=== PATIENT | female | born 1985 | race Caucasian/White ===

== ENCOUNTER → 2018-11-24 | Outpatient (CLI) | payer OTHER ==
--- NOTE | 2018-11-24 09:21 | US ---
EXAMINATION TYPE: US abdomen complete DATE OF EXAM: 11/24/2018 COMPARISON: NONE CLINICAL HISTORY: R74.8 Elevated liver enzymes. elevated labs, h/o pancreatitis, no abd symptoms toda y EXAM MEASUREMENTS: Liver Length: 15.1 cm Gallbladder Wall: 0.2 cm CBD: 1.0 cm Spleen: 12.6 cm Right Kidney: 10.6 x 5.3 x 4.0 cm Left Kidney: 10.3 x 3.4 x 5.2 cm Pancreas: wnl Liver: wnl Gallbladder: wnl Evidence for sonographic Golden's sign: no CBD: dilated with no obvious sign of obstruction Spleen: wnl Right Kidney: wnl Left Kidney: wnl Upper IVC: wnl Abd Aorta: wnl IMPRESSION: 1. Prominent common bile duct at 1.1 cm. Normal less than 0.5 cm and patient this age. No obstructing etiology is identified. Consider ERCP.
== END | disposition home or self-care (01) ==
LOC: RADUSWWP 07:13
PROVIDERS: ATTEND Family Medicine
DX: R74.8 Abnormal levels of other serum enzymes (principal)
CPT/HCPCS: 76700

== ENCOUNTER 2019-03-04 15:16 | Emergency (ER) | payer OTHER ==
[2019-03-04 15:39] VITALS: BP 139/86; PULSE 93; RESP 16; TEMP 98
[2019-03-04] MEDS ORDERED: LIDOCAINE 1% INJ 10MG/ML (20 ML MDV) SQ ONE (15:43)
[2019-03-04] MEDS ORDERED: GELATIN SPONGE,ABSORB (LARGE) 1 EACH SPONGE TOPICAL STA (15:44)
--- NOTE | 2019-03-04 16:33 | ED ---
Wound/Laceration HPI - General Chief Complaint: Wound/Laceration Stated Complaint: L finger laceration Time Seen by Provider: 03/04/19 15:40 Source: patient, RN notes reviewed, old records reviewed Mode of arrival: ambulatory Limitations: no limitations - History of Present Illness Initial Comments: Patient is a 33 year old female presents to ED with complaints of left index finger laceration after cutting it on a knife while cutting kareem at work. Patient reportedly works at [employer] was was cutting kareem and the knife slipped. She is up to date on vaccines. She has full range of motion of the finger. She reports this happened early this morning and was unable to get the bleeding to stop. She denies any other complaints. - Related Data Home Medications Medication Instructions Recorded Confirmed Dextroamphetamine Sulfate 15 mg PO QAM 11/06/15 11/08/15 [Dexedrine] Previous Rx's Medication Instructions Recorded Cephalexin [Keflex] 500 mg PO Q8HR #15 cap 11/08/15 Allergies Allergy/AdvReac Type Severity Reaction Status Date / Time No Known Allergies Allergy Verified 03/04/19 15:37 Review of Systems ROS Statement: Those systems with pertinent positive or pertinent negative responses have been documented in the HPI. ROS Other: All systems not noted in ROS Statement are negative. Past Medical History Past Medical History: No Reported History Additional Past Medical History / Comment(s): ADD, narcotic addiction. History of Any Multi-Drug Resistant Organisms: None Reported Past Surgical History: Section Past Psychological History: ADD/ADHD Smoking Status: Current every day smoker Past Alcohol Use History: None Reported Past Drug Use History: None Reported - Past Family History Mother Family Medical History: No Reported History (Her mother is alive she is 55-year-old and has history of alcoholism.) Father Family Medical History: No Reported History (Father is 65-year-old has no major medical problems.) General Exam - General Exam Comments Initial Comments: This is a 33 year old female, no distress. Limitations: no limitations General appearance: alert, in no apparent distress Head exam: Present: atraumatic, normocephalic, normal inspection Eye exam: Present: normal appearance, PERRL, EOMI. Absent: scleral icterus, conjunctival injection, periorbital swelling ENT exam: Present: normal exam, mucous membranes moist Neck exam: Present: normal inspection. Absent: tenderness, meningismus, lymphadenopathy Respiratory exam: Present: normal lung sounds bilaterally. Absent: respiratory distress, wheezes, rales, rhonchi, stridor Cardiovascular Exam: Present: regular rate, normal rhythm, normal heart sounds. Absent: systolic murmur, diastolic murmur, rubs, gallop, clicks GI/Abdominal exam: Present: soft, normal bowel sounds. Absent: distended, tenderness, guarding, rebound, rigid Extremities exam: Present: normal inspection, full ROM, normal capillary refill. Absent: tenderness, pedal edema, joint swelling, calf tenderness Left Forearm Wrist exam: Present: normal inspection, full ROM Hand Wrist exam: Present: laceration (1.5 cm laceration over dorsum tip of left index finger. No nail involvement. Full ROM of DIP, normal sensation distally. ). Absent: normal inspection Neuro motor exam: Present: wrist extension intact, thumb opposition intact, thumb IP flexion intact, thumb adduction intact Vascular: Present: normal capillary refill Back exam: Present: normal inspection Neurological exam: Present: alert, oriented X3, CN II-XII intact Psychiatric exam: Present: normal affect, normal mood Skin exam: Present: warm, dry, intact, normal color. Absent: rash Course Vital Signs 03/04/19 15:37 Temperature 98 F Pulse Rate 93 Respiratory 16 Rate Blood Pressure 139/86 O2 Sat by Pulse 99 Oximetry Procedures - Laceration Laceration #1 Site: hand (left index finger ) Size (cm): 2 Description: linear Depth: simple, single layer Anesthetic Used: lidocaine 1% Anesthesia Technique: nerve block Amount (mls): 2 Pre-repair: wound explored, irrigated extensively Type of Sutures: nylon Size of Sutures: 6-0 Number of Sutures: 3 Patient Tolerated Procedure: well, no complications Medical Decision Making - Medical Decision Making Patient is a 33 year old female with left index finger laceration from a knife. Patient at this time has no other symptoms. Full ROM and normal sensation of finger noted. Wound was cleaned and closed with 3 sutures. Bleeding controlled. Patient placed in a sterile dressing. Discussed suture care. All questions answered and return parameters dsicusesd. Disposition Clinical Impression: Finger laceration Disposition: HOME SELF-CARE Condition: Good Instructions (If sedation given, give patient instructions): Finger Laceration (ED) Additional Instructions: Please return to the emergency room in 7-10 days to have sutures removed. Please leave wound covered for the first 24-48 hours and then leave open to air after that time. Please use clean soap and water to clean the suture area to prevent scabbing over the top of your sutures. Please watch for any signs of infection which may include but not limited to increased pain, swelling, redness, fever or chills. Please return to the emergency room if any signs of infection do occur. Please return to the emergency room for any other concerns or complications. Is patient prescribed a controlled substance at d/c from ED?: No Referrals: Won Barillas MD [Primary Care Provider] - 1-2 days Time of Disposition: 16:31
== END 2019-03-04 16:38 | disposition home or self-care (01) ==
LOC: EC 15:16
DX: S61.211A Laceration without foreign body of left index finger without damage to nail, initial encounter (principal); F90.9 Attention-deficit hyperactivity disorder, unspecified type; F17.200 Nicotine dependence, unspecified, uncomplicated; Z79.899 Other long term (current) drug therapy; W26.0XXA Contact with knife, initial encounter; Y92.69 Other specified industrial and construction area as the place of occurrence of the external cause; Y99.0 Civilian activity done for income or pay
CPT/HCPCS: 99283; 12001; J2001

== ENCOUNTER → 2019-07-21 | Outpatient (CLI) | payer OTHER ==
--- NOTE | 2019-07-21 15:31 | US ---
EXAMINATION TYPE: US pelvic complete DATE OF EXAM: 07/21/2019 COMPARISON: NONE CLINICAL HISTORY: R10.2 PELVIC PAIN. Pelvic pain x2 weeks TECHNIQUE: Transabdominal sonographic images of the pelvis were acquired. Date of LMP: 07/02/2019 EXAM MEASUREMENTS: Uterus: 9.2 x 4.6 x 5.1 cm Endometrial Stripe: 0.5 cm Right Ovary: 3.8 x 2.0 x 2.0 cm Left Ovary: 4.0 x 2.2 x 2.1 cm 1. Uterus: Anteverted 2. Endometrium: wnl 3. Right Ovary: wnl 4. Left Ovary: wnl 5. Bilateral Adnexa: wnl 6. Posterior cul-de-sac: wnl IMPRESSION: Unremarkable pelvic ultrasound.
== END ==
LOC: RADUSWWP 14:48
PROVIDERS: ATTEND Family Medicine
DX: R10.2 Pelvic and perineal pain (principal)
CPT/HCPCS: 76856

== ENCOUNTER 2019-09-05 16:28 | Emergency (ER) | payer OTHER ==
--- NOTE | 2019-09-05 18:09 | US ---
EXAMINATION TYPE: Transabdominal DATE OF EXAM: 09/05/2019 5:52 PM COMPARISON: NONE CLINICAL HISTORY: abdominal pain after fall.Patient fell pain. EXAM PERFORMED: Transvaginal (TV) and Transabdominal (TA) EXAM MEASUREMENTS: GESTATIONAL AGE / DATING Physician Established: Not yet established Dates by LMP: (8 weeks/4 days) EDC: 04/12/2020 Dates by First Scan: No previous this is first scan Dates by Current Scan for: No IUP seen at this time MATERNAL ANATOMY Uterus: 8.8 x 6.2 x 6.8 cm Right Ovary: Obscured by bowel gas. Left Ovary: 2.9 x 2.5 x 2.3 cm Post CDS / Adnexa: wnl Presence of free fluid: no Presence of corpus luteal cyst: no Presence of subchorionic bleed: no GESTATION / SURVEY IUP: No IUP seen at this time Beta HcG (if available): Not available at this time IMPRESSION: Intrauterine gestational sac with yolk sac. The sac measures 10 mm. Yolk sac is 4 mm. Follow-up exam is recommended in 2 weeks to confirm a living fetus.
[2019-09-05 18:57] LABS: Basophils # (A) 0.1 k/uL (0-0.2); Basophils % (A) 1 %; Eosinophils # (A) 0.1 k/uL (0-0.7); Eosinophils % (A) 2 %; HCT 42.3 % (34.0-46.0); HGB 13.9 gm/dL (11.4-16.0); Lymphocytes # (A) 2.3 k/uL (1.0-4.8); Lymphocytes % (A) 44 %; MCH 30.4 pg (25.0-35.0); MCHC 32.9 g/dL (31.0-37.0); MCV 92.6 fL (80.0-100.0); Monocytes # (A) 0.2 k/uL (0-1.0); Monocytes % (A) 5 %; Neutrophils # (A) 2.5 k/uL (1.3-7.7); Neutrophils % (A) 47 %; Platelet Count 237 k/uL (150-450); RBC 4.57 m/uL (3.80-5.40); RDW 12.1 % (11.5-15.5); WBC 5.4 k/uL (3.8-10.6)
[2019-09-05 19:01] LABS: Appearance,Urine Cloudy (Clear); Bacteria,Urine Rare /hpf; Bilirubin,Urine Negative (Negative); Blood,Urine Moderate (Negative); Color,Urine Yellow; Glucose,Urine (UA) Negative (Negative); Ketones,Urine Negative (Negative); Leukocyte Esterase,Urine Large (Negative); Mucus,Urine Rare /hpf; Nitrite,Urine Negative (Negative); PH, Urine 5.5 (5.0-8.0); Protein,Urine Negative (Negative); RBC,Urine 3 /hpf (0-5); Specific Gravity,Urine 1.018 (1.001-1.035); Squamous Epithelial Cell,Urine 16 /hpf (0-4); Urobilinogen,Urine <2.0 mg/dL (<2.0); WBC,Urine 16 /hpf (0-5)
[2019-09-05 19:05] LABS: ALT 49 U/L (4-34); AST 41 U/L (14-36); African American GFR (CKD) >90 (>60 ml/min/1.73 sqM); Albumin 4.2 g/dL (3.5-5.0); Alkaline Phosphatase 42 U/L (38-126); Anion Gap 6 mmol/L; Blood Urea Nitrogen 14 mg/dL (7-17); Calcium 9.9 mg/dL (8.4-10.2); Carbon Dioxide 24 mmol/L (22-30); Chloride 107 mmol/L (98-107); Glucose 74 mg/dL (74-99); Non-African American GFR(CKD) >90 (>60 ml/min/1.73 sqM); Potassium 4.8 mmol/L (3.5-5.1); Sodium 137 mmol/L (137-145); Total Bilirubin 0.3 mg/dL (0.2-1.3); Total Protein 7.1 g/dL (6.3-8.2)
[2019-09-05 19:22] LABS: HCG,Quantitative Serum 7759.3 mIU/mL
[2019-09-05 19:24] VITALS: BP 114/72; PULSE 70; RESP 16; TEMP 98
--- NOTE | 2019-09-05 19:47 | ED ---
Abdominal Pain HPI - General Chief Complaint: Abdominal Pain Stated Complaint: Fall, Abd pain-9wks PG Time Seen by Provider: 09/05/19 16:52 Source: patient Mode of arrival: ambulatory Limitations: no limitations - History of Present Illness Initial Comments: 34yo female presenting today for chief complaint of fall. Patient states she fell down one step slid on her right hip. Patient states she now has some very mild pelvic cramping. Patient states she has somewhere around 9 weeks with last menstrual period July 07. Patient denies direct abdominal trauma, vaginal bleeding, flank pain, dysuria, urgency, frequency vaginal discharge. Issac tobin states she thinks she just bruised her tissue, of the hip she "does not think she broke anything". She states she is able to ambulate without difficulty. Patient denies injury to chest, pain with inspiration, or head, neck injury. remaining ROS (-). Patient states fall was due to trip. - Related Data Home Medications Medication Instructions Recorded Confirmed Dextroamphetamine Sulfate 15 mg PO QAM 11/06/15 11/08/15 [Dexedrine] Previous Rx's Medication Instructions Recorded Cephalexin [Keflex] 500 mg PO Q8HR #15 cap 11/08/15 Cephalexin [Keflex] 500 mg PO Q12HR 5 Days #10 cap 09/05/19 Allergies Allergy/AdvReac Type Severity Reaction Status Date / Time No Known Allergies Allergy Verified 09/05/19 16:36 Review of Systems ROS Statement: Those systems with pertinent positive or pertinent negative responses have been documented in the HPI. ROS Other: All systems not noted in ROS Statement are negative. Past Medical History Past Medical History: No Reported History Additional Past Medical History / Comment(s): ADD, narcotic addiction. History of Any Multi-Drug Resistant Organisms: None Reported Past Surgical History: Section Past Psychological History: ADD/ADHD Smoking Status: Current every day smoker Past Alcohol Use History: None Reported Past Drug Use History: None Reported - Past Family History Mother Family Medical History: No Reported History (Her mother is alive she is 55-year-old and has history of alcoholism.) Father Family Medical History: No Reported History (Father is 65-year-old has no major medical problems.) General Exam - General Exam Comments Initial Comments: General: The patient is awake and alert, in no distress, and does not appear acutely ill. Eye: +3 mm pupils are equal, round and reactive to light, extra-ocular movements are intact. No nystagmus. There is normal conjunctiva bilaterally. No signs of icterus. Ears, nose, mouth and throat: There are moist mucous membranes and no oral lesions. Neck: The neck is supple, there is no tenderness or JVD. Cardiovascular: There is a regular rate and rhythm. No murmur, rub or gallop is appreciated. Respiratory: Lungs are clear to auscultation, respirations are non-labored, breath sounds are equal. No wheezes, stridor, rales, or rhonchi. Gastrointestinal: Soft, non-distended, non-tender abdomen without masses or organomegaly noted. There is no rebound or guarding present. No CVA tenderness. Bowel sounds are unremarkable. Musculoskeletal: Normal ROM, no tenderness. Strength 5/5. Sensation intact. Radial pulses equal bilaterally 2+. Neurological: A&O x 3. CN II-XII intact grossly, There are no obvious motor or sensory deficits. Coordination appears grossly intact. Speech is normal. Skin: Skin is warm and dry and no rashes or lesions are noted. No areas of ecchymosis or hard signs of trauma Psychiatric: Cooperative, appropriate mood & affect, normal judgment. Limitations: no limitations Course Vital Signs 09/05/19 09/05/19 16:32 19:23 Temperature 98.2 F 98.0 F Pulse Rate 97 70 Respiratory 18 16 Rate Blood Pressure 122/68 114/72 O2 Sat by Pulse 98 98 Oximetry Medical Decision Making - Medical Decision Making 34 or female presenting today for chief complaint of right hip pain fall patient presented for evaluation of BV. Ultrasound revealed a gestational sac with yolk. There is no heart rate at this time. Pt denies vaginal bleeding or severe pain. States most pain is in right hip/buttock. No bruising. Patient can weight bear and refuses imaging studies of hip due to fear of radiation of baby. P atient N/V intact. patient HCG consistent with ear . At this time I recommend close OBGYN f/u. Patient has scheduled appointment with Dr. Goodman discussed case reviewing imaging and labs with attending Dr. Perla who is agreeable to discharge and care plan. Patient agreeable stating she is ready for d/c. Will treat asymptomatic bacteria in urine. - Lab Data Result diagrams: 09/05/19 18:45 09/05/19 18:45 Lab Results 09/05/19 09/05/19 09/05/19 Range/Units 18:45 18:45 18:45 WBC 5.4 (3.8-10.6) k/uL RBC 4.57 (3.80-5.40) m/uL Hgb 13.9 (11.4-16.0) gm/dL Hct 42.3 (34.0-46.0) % MCV 92.6 (80.0-100.0) fL MCH 30.4 (25.0-35.0) pg MCHC 32.9 (31.0-37.0) g/dL RDW 12.1 (11.5-15.5) % Plt Count 237 (150-450) k/uL Neutrophils % 47 % Lymphocytes % 44 % Monocytes % 5 % Eosinophils % 2 % Basophils % 1 % Neutrophils # 2.5 (1.3-7.7) k/uL Lymphocytes # 2.3 (1.0-4.8) k/uL Monocytes # 0.2 (0-1.0) k/uL Eosinophils # 0.1 (0-0.7) k/uL Basophils # 0.1 (0-0.2) k/uL Sodium 137 (137-145) mmol/L Potassium 4.8 (3.5-5.1) mmol/L Chloride 107 (98-107) mmol/L Carbon Dioxide 24 (22-30) mmol/L Anion Gap 6 mmol/L BUN 14 (7-17) mg/dL Creatinine 0.72 (0.52-1.04) mg/dL Est GFR (CKD-EPI)AfAm >90 (>60 ml/min/1.73 sqM) Est GFR (CKD-EPI)NonAf >90 (>60 ml/min/1.73 sqM) Glucose 74 (74-99) mg/dL Calcium 9.9 (8.4-10.2) mg/dL Total Bilirubin 0.3 (0.2-1.3) mg/dL AST 41 H (14-36) U/L ALT 49 H (4-34) U/L Alkaline Phosphatase 42 (38-126) U/L Total Protein 7.1 (6.3-8.2) g/dL Albumin 4.2 (3.5-5.0) g/dL HCG, Quant 7759.3 mIU/mL Urine Color Yellow Urine Appearance Cloudy H (Clear) Urine pH 5.5 (5.0-8.0) Ur Specific [place] 1.018 (1.001-1.035) Urine Protein Negative (Negative) Urine Glucose (UA) Negative (Negative) Urine Ketones Negative (Negative) Urine Blood Moderate H (Negative) Urine Nitrite Negative (Negative) Urine Bilirubin Negative (Negative) Urine Urobilinogen <2.0 (<2.0) mg/dL Ur Leukocyte Esterase Large H (Negative) Urine RBC 3 (0-5) /hpf Urine WBC 16 H (0-5) /hpf Ur Squamous Epith Cells 16 H (0-4) /hpf Urine Bacteria Rare H (None) /hpf Urine Mucus Rare H (None) /hpf Disposition Clinical Impression: Fall, Lower abdominal pain, Right hip pain Disposition: HOME SELF-CARE Condition: Good Instructions (If sedation given, give patient instructions): Abdominal Pain in (ED) Additional Instructions: Please use medication as discussed. Please follow-up with family doctor in the next 2 days.. Please return to emergency room if the symptoms increase or worsen or for any other concerns. Is patient prescribed a controlled substance at d/c from ED?: No Referrals: Won Barillas MD [Primary Care Provider] - 1-2 days Uriel Goodman DO [Doctor of Osteopathic Medicine] - 1-2 days Time of Disposition: 19:47
== END 2019-09-05 19:54 | disposition home or self-care (01) ==
LOC: EC 16:28
DX: O99.89 Other specified diseases and conditions complicating pregnancy, childbirth and the puerperium (principal); R10.2 Pelvic and perineal pain; M25.551 Pain in right hip; R82.71 Bacteriuria; O99.341 Other mental disorders complicating pregnancy, first trimester; F90.9 Attention-deficit hyperactivity disorder, unspecified type; O99.331 Smoking (tobacco) complicating pregnancy, first trimester; Z79.899 Other long term (current) drug therapy; Z98.890 Other specified postprocedural states; Z3A.01 Less than 8 weeks gestation of pregnancy; W10.9XXA Fall (on) (from) unspecified stairs and steps, initial encounter
CPT/HCPCS: 36415; 76801; 76817; 80053; 81001; 84702; 85025; 99284

== ENCOUNTER → 2019-09-07 | Outpatient (CLI) | payer OTHER | END | disposition home or self-care (01) | LOC: LABMAIN 21:34 | PROVIDERS: ATTEND Obstetrics & Gynecology | DX: O20.0 Threatened abortion (principal) | CPT/HCPCS: 36415; 84702 ==

== ENCOUNTER → 2019-09-09 | Outpatient (CLI) | payer OTHER | END | disposition home or self-care (01) | LOC: LABMAIN 18:41 | PROVIDERS: ATTEND Obstetrics & Gynecology | DX: O03.9 Complete or unspecified spontaneous abortion without complication (principal) | CPT/HCPCS: 36415; 84702 ==

== ENCOUNTER → 2019-09-16 | Outpatient (CLI) | payer OTHER ==
--- NOTE | 2019-09-16 13:41 | US ---
EXAMINATION TYPE: Transabdominal DATE OF EXAM: 09/16/2019 1:11 PM COMPARISON: NONE CLINICAL HISTORY: Z36 CONFIRM DATES. Bleeding since last week miscarraige. EXAM PERFORMED: Transabdominal (TA) EXAM MEASUREMENTS: GESTATIONAL AGE / DATING Physician Established: Not yet established Dates by First Scan: Not dated by first scan. Dates by Current Scan for: No IUP seen. MATERNAL ANATOMY Uterus: 8.9 x 4.8 x 5.5 Right Ovary: 1.9 x 1.0 x 1.4 cm Left Ovary: 2.0 x 1.4 x 1.4 cm Post CDS / Adnexa: wnl Presence of free fluid: no Presence of corpus luteal cyst: no GESTATION / SURVEY IUP: No IUP seen at this time Beta HcG (if available): None available IMPRESSION: No intrauterine is seen. Correlate with beta-hCG trend. Endometrium is not visu alized. If there is concern for retained products of conception or endometritis, transvaginal pelvic ultrasound could be performed for better delineation of the endometrial thickness and vascularity.
== END | disposition home or self-care (01) ==
LOC: RADUSWWP 12:20
PROVIDERS: ATTEND Obstetrics & Gynecology
DX: O03.9 Complete or unspecified spontaneous abortion without complication (principal)
CPT/HCPCS: 36415; 76801; 84702

== ENCOUNTER → 2019-09-30 | Outpatient (CLI) | payer OTHER | END | disposition home or self-care (01) | LOC: LABWHC1 07:48 | PROVIDERS: ATTEND Obstetrics & Gynecology | DX: O03.9 Complete or unspecified spontaneous abortion without complication (principal) | CPT/HCPCS: 36415; 84702 ==

== ENCOUNTER → 2019-11-09 | Outpatient (CLI) | payer OTHER | END | disposition home or self-care (01) | LOC: LABWHC1 11:43 | PROVIDERS: ATTEND Obstetrics & Gynecology | DX: N91.2 Amenorrhea, unspecified (principal) | CPT/HCPCS: 36415; 84702 ==

== ENCOUNTER → 2019-11-11 | Outpatient (CLI) | payer OTHER | END | disposition home or self-care (01) | LOC: LABWHC1 10:53 | PROVIDERS: ATTEND Obstetrics & Gynecology | DX: N91.2 Amenorrhea, unspecified (principal) | CPT/HCPCS: 36415; 84702 ==

== ENCOUNTER → 2019-11-16 | Outpatient (CLI) | payer OTHER ==
--- NOTE | 2019-11-16 09:30 | US ---
EXAMINATION TYPE: Ultrasound OB <= 14 weeks transvaginal DATE OF EXAM: 11/16/2019 8:54 AM COMPARISON: 09/05/2019 CLINICAL HISTORY: 34-year-old female Z36 Confirm Dates. Recent miscarriage . No issues this EXAM PERFORMED: Transvaginal (TV) and Transabdominal (TA) FINDINGS: EXAM MEASUREMENTS: GESTATIONAL AGE / DATING Physician Established: Not yet established Dates by LMP: (6 weeks/3 days) EDC: 07/08/2020 Dates by First Scan: No previous this is first scan ( Dates by Current Scan for: (5 weeks/5 days +/- 3 days) EDC: 07/13/2020 MATERNAL ANATOMY Uterus: 10.3 x 6.0 x 6.8 cm Right Ovary: 3.8 x 2.1 x 2.0 cm Left Ovary: 2.1 x 1.4 x 1.7 cm Post CDS / Adnexa: wnl Presence of free fluid: No Presence of corpus luteal cyst: Right ovary measuring 1.4 cm Presence of subchorionic bleed: No GESTATION / SURVEY CRL: 1.3 cm (5 weeks/4 days) MSD: 0.3 cm (5 weeks/6 days) Yolk Sac (normal less than 6mm): 2.4 mm Heart Rate: 110 bpm Rhythm: Normal for early gestation IUP: Viable IUP Date of LMP: 10/02/2019 Beta HcG (if available): 15,000 Viable IUP with an KEVIN of 07/13/2020 IMPRESSION: 1. Single live intrauterine with estimated gestational age of 6 weeks 3 days by LMP. Curren t ultrasound biometry is smaller and slightly discordant (5 weeks 5 days). Correlate for accuracy of recall of LMP. Follow-up as indicated. 2. Otherwise, complete survey recommended at 18-20 weeks.
== END | disposition home or self-care (01) ==
LOC: RADUSWWP 08:28
PROVIDERS: ATTEND Obstetrics & Gynecology
DX: Z3A.01 Less than 8 weeks gestation of pregnancy (principal); Z87.59 Personal history of other complications of pregnancy, childbirth and the puerperium
CPT/HCPCS: 76801; 76817

== ENCOUNTER → 2020-01-12 | Outpatient (CLI) | payer OTHER ==
[2020-01-12 09:35] LABS: HCT 39.1 % (34.0-46.0); MCH 29.6 pg (25.0-35.0); MCHC 33.3 g/dL (31.0-37.0); MCV 88.8 fL (80.0-100.0); Mean Platelet Volume 6.9; Platelet Count 255 k/uL (150-450); RDW 11.8 % (11.5-15.5); WBC 4.4 k/uL (3.8-10.6)
[2020-01-12 17:27] LABS: African American GFR (CKD) 129.2 (60.0-200.0); Non-African American GFR(CKD) 111.5 (60.0-200.0)
[2020-01-12 18:34] LABS: Hepatitis B Surface Antigen Non-Reactive (Non-Reactive)
[2020-01-13 04:53] LABS: Toxoplasma Antibody (IgG) <3.0 IU/mL (<7.2); Toxoplasma Antibody (IgM) <3.0 AU/mL (<8.0)
== END | disposition home or self-care (01) ==
LOC: LABWHC1 08:27
PROVIDERS: ATTEND Obstetrics & Gynecology
DX: Z34.81 Encounter for supervision of other normal pregnancy, first trimester (principal)
CPT/HCPCS: 36415; 82565; 82947; 85027; 86762; 86777; 86778; 86780; 86850; 86900; 86901; 87340

== ENCOUNTER → 2020-05-31 | Outpatient (CLI) | payer OTHER ==
[2020-05-31 15:31] LABS: T4, Free (Free Thyroxine) 1.2 ng/dL (0.80-1.80)
== END | disposition home or self-care (01) ==
LOC: LABWHC1 07:20
PROVIDERS: ATTEND Obstetrics & Gynecology
DX: Z13.29 Encounter for screening for other suspected endocrine disorder (principal)
CPT/HCPCS: 36415; 84439; 84443; 84479

== ENCOUNTER 2020-06-05 06:00 | Inpatient (IN) | payer OTHER ==
[2020-07-04] MEDS ORDERED: OXYTOCIN 10 UNIT/ML 1 ML VIAL IM PRN (06:57)
[2020-07-04] MEDS ORDERED: LIDOCAINE 0.5% (PF) 5 MG/ML (50 ML SDV) SQ PRN (06:57)
[2020-07-04] MEDS ORDERED: METHYLERGONOVINE 0.2 MG/ML 1 ML AMP IM PRN (06:57)
[2020-07-04] MEDS ORDERED: TERBUTALINE 1 MG/ML VIAL SQ PRN (06:57)
[2020-07-04] MEDS ORDERED: CARBOPROST TROMETHAMINE 250 MCG/ML 1 ML AMP IM PRN (06:57)
[2020-07-04] MEDS ORDERED: OXYTOCIN 30 UNITS/500 ML NS 30 UNIT in SALINE 1 500ML.BAG IV SCH (07:00)
[2020-07-04 07:11] LABS: Basophils # (A) 0.1 k/uL (0-0.2); Basophils % (A) 1 %; Eosinophils # (A) 0.1 k/uL (0-0.7); Eosinophils % (A) 1 %; HCT 38.9 % (34.0-46.0); HGB 13.4 gm/dL (11.4-16.0); Lymphocytes # (A) 2.4 k/uL (1.0-4.8); Lymphocytes % (A) 39 %; MCH 30.8 pg (25.0-35.0); MCHC 34.5 g/dL (31.0-37.0); MCV 89.2 fL (80.0-100.0); Mean Platelet Volume 7.5; Monocytes # (A) 0.2 k/uL (0-1.0); Monocytes % (A) 3 %; Neutrophils # (A) 3.3 k/uL (1.3-7.7); Neutrophils % (A) 55 %; Platelet Count 260 k/uL (150-450); RBC 4.36 m/uL (3.80-5.40); RDW 12.7 % (11.5-15.5); WBC 6.1 k/uL (3.8-10.6)
[2020-07-04] MEDS: LACTATED RINGERS 1,000 ML IV SCH ×3 (07:44→20:17)
--- NOTE | 2020-07-04 08:13 | P.HPOB ---
History of Present Illness H&P Date: 07/04/20 Chief Complaint: Intrauterine at term: Advanced maternal age November is a 35-year-old with a history of one delivery. Her Precis course has been, complicated by methadone use that was discovered until very late in the . She has had nonstress tests due to advanced maternal age and has been followed carefully from that standpoint. She did have a fall and scraped her hand and knee had approximately 30 weeks. I did arrange for her to speak with the assembler dc field ring about her methadone use. She is also a trial of labor following section with expectation for vaginal after section. She is aware of risks of doing this including potential rupture of the uterus were limited tear of the uterine incision with potential r isk of emergent surgery and large blood volume loss as well as potential neurologic injury or . She and/or the baby. This was reviewed with her in great detail and previous visits. All questions are answered for her at this time. She is stable at this time. A category 1 tracing was noted and artificial rupture membranes was performed with her dilated to 2 cm 70% effaced -2 station. Past Medical History Past Medical History: No Reported History Additional Past Medical History / Comment(s): ADD, narcotic addiction. History of Any Multi-Drug Resistant Organisms: None Reported Past Surgical History: Section Additional Past Surgical History / Comment(s): wisdom teeth, breast augmentation, hand surgery Past Anesthesia/Blood Transfusion Reactions: No Reported Reaction Past Psychological History: ADD/ADHD Smoking Status: Former smoker Past Alcohol Use History: None Reported Additional Drug Use History / Comment(s): methdaone - Past Family History Mother Family Medical History: No Reported History Father Family Medical History: No Reported History Medications and Allergies Home Medications Medication Instructions Recorded Confirmed Type Methadone [Dolophine] 80 mg PO DAILY 07/04/20 07/04/20 History Allergies Allergy/AdvReac Type Severity Reaction Status Date / Time lactose Allergy Intermediate Nausea & Verified 07/04/20 06:54 Vomiting & Diarrhea Exam Osteopathic Statement: *. No significant issues noted on an osteopathic structural exam other than those noted in the History and Physical/Consult. Vital Signs Temp Pulse Resp BP 07/04/20 07:26 97.5 F L 81 16 127/81 Intake and Output 07/03/20 07/04/20 07/04/20 22:59 06:59 14:59 Other: Weight 92.986 kg 92.986 kg - OBG Physical Exam Breast: both: normal (no masses) Abdomen: bowel sounds normal, no diffuse tenderness, no bruit present, no guarding noted, no hepatomegaly, no splenomegaly, no mass Vulva: both: normal Vagina: normal moisture, no discharge Cervix: no lesion, no discharge Uterus: normal size, normal contour Adnexa: both: normal Anus/Rectum: normal perianal skin, no rectal mass, no hemorrhoids, heme negative Results Result Diagrams: 07/04/20 06:50
[2020-07-04] MEDS ORDERED: AMPICILLIN 2,000 MG in SODIUM CHLORIDE 0.9% 50 ML IVPB STA (21:40)
[2020-07-04] MEDS ORDERED: BENZOCAINE/MENTHOL SPRAY 1 GM/SPRAY AEROSOL TOPICAL PRN (22:28)
[2020-07-04] MEDS ORDERED: ZOLPIDEM 5 MG TAB PO PRN (22:28)
[2020-07-04] MEDS ORDERED: HYDROCORTISONE 2.5% RECTAL CREAM 30 GM TUBE RECTAL PRN (22:28)
[2020-07-04] MEDS ORDERED: diphenhydrAMINE 50 MG/ML 1 ML VIAL IVP PRN ×2 (22:28)
[2020-07-04] MEDS ORDERED: LANOLIN CREAM 5 GM TUBE TOPICAL PRN (22:28)
[2020-07-04] MEDS ORDERED: diphenhydrAMINE 25 MG CAP PO PRN (22:28)
[2020-07-04] MEDS ORDERED: diphenhydrAMINE 50 MG CAP PO PRN (22:28)
[2020-07-04] MEDS ORDERED: SIMETHICONE 80 MG CHEWABLE PO PRN (22:28)
[2020-07-04] MEDS ORDERED: OXYTOCIN 20 UNITS/1000 ML NS 1,000 ML IV SCH (22:30)
--- NOTE | 2020-07-04 22:30 | P.PROBDLV ---
Vaginal Delivery Note - . Vaginal Delivery Note: Progressed to complete and pushed with spontaneous vaginal delivery of a viable male over an intact perineum. Following delivery of the head from left occiput anterior position anterior posterior shoulders were easily delivered with gentle downward upper traction followed by the remainder the baby. Mouth nares were then bulb suctioned and baby was placed mother's abdomen where the umbilical cord was allowed to pulsate for 45 seconds prior to clamping and c utting. Nursery personnel was present and assumed care. Placenta was then delivered intact Pitocin was added to the IV. scores are 9 and 9 at one and 5 minutes respectively and the weight was 7 lbs. 9 oz. Both the mother and baby are stable following delivery.
[2020-07-04] MEDS: IBUPROFEN 600 MG TAB PO PRN (23:08)
[2020-07-05] MEDS: ACETAMINOPHEN TAB 325 MG TAB PO PRN ×3 (02:59→18:57)
[2020-07-05] MEDS: IBUPROFEN 600 MG TAB PO PRN ×3 (05:02→21:03)
[2020-07-05] MEDS: SENNOSIDES-DOCUSATE SODIUM 1 EACH TAB PO SCH ×2 (07:38→21:01)
[2020-07-05 08:35] VITALS: RESP 16
--- NOTE | 2020-07-05 08:38 | P.PN ---
Progress Note - Text Progress Note Date: 07/05/20November seen and evaluated this morning. She is doing very well. She is tolerating her diet and she is ambulating and voiding without difficulty. Her vital signs are stable and afebrile. This point she is ready taken her methadone. I ordered methadone 80 mg daily and did discuss this with pharmacy. All questions are answered for her at this time. She if it she is taking pill form she can take her own and we can send identified from a see and identify it if not or if it's liquid informed and will have to give her the hospital methadone for the next 24 hours. All the questions are answered for her at this time and she is stable at this time. On physical exam her heart is regular, joce ngs clear and her abdomen is soft. Lochia is reported light. Continue current care.
[2020-07-05] MEDS: METHADONE 10 MG TAB PO SCH (11:43)
--- NOTE | 2020-07-05 16:05 | P.PN ---
Progress Note - Text Progress Note Date: 07/05/20November is seen and evaluated again this afternoon. She is doing very well and the plan will be to discharge her to home tomorrow. Prescriptions for Motrin and Reglan are 42 from 60. She is requesting the Reglan for increase in milk production as she is had to use medications in the past. She is aware of symptoms i.e. extrapyramidal symptoms as well as fatigue and irritability that may come with use of Reglan. Her plans to not use it and left is absent gas syringe her milk production is decreased. However, with this being a holiday weekend she would like to make sure that she has it available just in case she needs it. Prescription for breast pump was also provided. Discharge instru ctions were thoroughly reviewed and all questions were answered for both she and her .
[2020-07-06] MEDS: ACETAMINOPHEN TAB 325 MG TAB PO PRN ×2 (02:12→11:01)
[2020-07-06] MEDS: IBUPROFEN 600 MG TAB PO PRN (06:12)
[2020-07-06] MEDS: METHADONE 10 MG TAB PO SCH (06:12)
--- NOTE | 2020-07-06 07:13 | P.PNOBGVD ---
Subjective - Subjective Patient reports: Reports appetite normal, Reports voiding normally, Reports pain well controlled, Reports ambulating normally : doing well Objective - Latest Vital Signs Latest vital signs: Vital Signs Temp Pulse Resp BP Pulse Ox 07/05/20 23:11 97.6 F 81 16 135/81 97 07/05/20 16:00 96.3 F L 71 16 131/75 98 07/05/20 08:00 98.4 F 97 16 123/77 96 Intake and Output 07/05/20 07/06/20 07/06/20 22:59 06:59 14:59 Intake Total 300 Balance 300 Intake: Oral 300 Other: # Voids 2 2 - Exam Lungs: bilateral: normal Chest: Normal S1, Normal S2 Extremities: Present: normal Abdomen: Present: normal appearance, soft Uterus: Present: normal, firm Assessment and Plan Assessment: Post day #2. Patient is resting without new complaints. Vital signs are stable and she is afebrile. Uterus is firm nontender she's having normal lochia. Plan today is to continue routine care discharge home later. (1) Vaginal delivery Current Visit: Yes Status: Acute Code(s): O80 - ENCOUNTER FOR FULL-TERM UNCOMPLICATED DELIVERY SNOMED Code(s): 503208938
--- NOTE | 2020-07-06 07:16 | P.DS ---
Providers Date of admission: 07/04/20 06:27 Expected date of discharge: 07/06/20 Attending physician: Uriel Goodamn Primary care physician: Stated None - Discharge Diagnosis(es) (1) Vaginal delivery Current Visit: Yes Status: Acute Hospital Course: Please see dictated H&P for intimate details of this patient's admission. Brief summary this is a 35-year-old 9 para 6 female estimated gestational age 39-2/7 weeks who presented to labor and delivery for induction of labor per Dr. Goodman. Patient goes on to have a vaginal delivery () of a viable male . Please see dictated delivery note. Post day #2 patient's felt to be stable for discharge home follow up with Dr. Goodman as instructed. Procedures: Induction of labor and normal vaginal delivery () Patient Condition at Discharge: Good Plan - Discharge Summary New Discharge Prescriptions: New Ibuprofen [Motrin] 600 mg PO Q6HR PRN #30 tab PRN Reason: Pain Metoclopramide HCl [Reglan] 10 mg PO BID #28 tablet No Action Methadone [Dolophine] 80 mg PO DAILY Discharge Medication List Methadone [Dolophine] 80 mg PO DAILY 07/04/20 [History] Ibuprofen [Motrin] 600 mg PO Q6HR PRN #30 tab 07/05/20 [Rx] Metoclopramide HCl [Reglan] 10 mg PO BID #28 tablet 07/05/20 [Rx] Follow up Appointment(s)/Referral(s): Uriel Goodman DO [Doctor of Osteopathic Medicine] - 6 Weeks Activity/Diet/Wound Care/Special Instructions: No heavy lifting, limit stairs and driving and pelvic rest. call for any high tempratures, heavy bleeding, or severe pain Discharge Disposition: HOME SELF-CARE
[2020-07-06] MEDS: SENNOSIDES-DOCUSATE SODIUM 1 EACH TAB PO SCH (08:53)
[2020-07-06 11:20] VITALS: BP 149/79; PULSE 78; TEMP 98
== END 2020-07-06 13:12 | disposition home or self-care (01) | DRG 806 ==
LOC: 4FBP 07-04 06:27
PROVIDERS: ADMIT Obstetrics & Gynecology; ATTEND Obstetrics & Gynecology
PROC: 10E0XZZ Delivery of Products of Conception, External Approach (ICD-10-PCS; principal; 2020-07-04)
DX: O34.219 Maternal care for unspecified type scar from previous cesarean delivery (principal); O99.324 Drug use complicating childbirth; Z37.0 Single live birth; F90.9 Attention-deficit hyperactivity disorder, unspecified type; F11.90 Opioid use, unspecified, uncomplicated; O99.344 Other mental disorders complicating childbirth; Z87.891 Personal history of nicotine dependence; Z91.09 Other allergy status, other than to drugs and biological substances; Z3A.39 39 weeks gestation of pregnancy
CPT/HCPCS: 85025; 86850; 86900; 86901

== ENCOUNTER → 2021-02-14 | Outpatient (CLI) | payer OTHER ==
[2021-02-14 12:11] LABS: HCT 41.2 % (37.2-46.3); HGB 13.8 g/dL (12.0-15.0); MCH 29.2 pg (27.0-32.0); MCHC 33.5 g/dL (32.0-37.0); MCV 87.1 fL (80.0-97.0); Mean Platelet Volume 9.6 fL (9.5-12.2); Platelet Count 296 X 10*3/uL (140-440); RBC 4.73 X 10*6/uL (4.10-5.20); RDW 12.8 % (11.5-14.5)
[2021-02-14 16:42] LABS: African American GFR (CKD) 109.2 (60.0-200.0); Non-African American GFR(CKD) 94.2 (60.0-200.0)
[2021-02-14 17:16] LABS: T4, Free (Free Thyroxine) 0.8 ng/dL (0.80-1.80)
[2021-02-14 18:01] LABS: HIV 2 AB Non-Reactive (Non-Reactive); HIV AB P24 Non-Reactive (Non-Reactive); HIV P24 AG Non-Reactive (Non-Reactive)
[2021-02-14 19:47] LABS: Hepatitis B Surface Antigen Non-Reactive (Non-Reactive)
[2021-02-14 21:20] LABS: T3, Uptake 22 % (23-37)
[2021-02-15 04:28] LABS: Toxoplasma Antibody (IgG) <3.0 IU/mL (<7.2); Toxoplasma Antibody (IgM) <3.0 AU/mL (<8.0)
== END | disposition home or self-care (01) ==
LOC: LABWHC1 07:33
PROVIDERS: ATTEND Obstetrics & Gynecology
DX: Z34.81 Encounter for supervision of other normal pregnancy, first trimester (principal); Z3A.00 Weeks of gestation of pregnancy not specified
CPT/HCPCS: 36415; 82565; 82947; 84439; 84443; 84479; 85027; 86762; 86777; 86778; 86780; 86850; 86900; 86901; 87340; 87390

== ENCOUNTER → 2021-02-22 | Outpatient (CLI) | payer OTHER ==
--- NOTE | 2021-02-22 14:05 | US ---
EXAMINATION TYPE: Transabdominal DATE OF EXAM: 02/22/2021 1:21 PM COMPARISON: NONE CLINICAL HISTORY: O26.851 bleeding and spotting. spotting that started this morning EXAM PERFORMED: Transabdominal (TA) EXAM MEASUREMENTS: GESTATIONAL AGE / DATING Physician Established: (11 weeks/1 days) EDC: 09/12/21 Dates by LMP: unknown Dates by First Scan: No previous this is first scan Dates by Current Scan for: (10 weeks/5 days) EDC: 09/15/21 MATERNAL ANATOMY Uterus: 13.6 x 6.4 x 9.9cm Right Ovary: 2.3 x 1.0 x 2.3cm Left Ovary: 3.5 x 2.5 x 3.5cm Post CDS / Adnexa: appears wnl Presence of free fluid: no Presence of corpus luteal cyst: cystic area left ovary = 2.6 x 2.0 x 2.7cm GESTATION / SURVEY CRL: 3.8cm (10 weeks/5 days) Yolk Sac (normal less than 6mm): 0.4cm Heart Rate: 163 bpm Rhythm: Normal IUP: Viable IUP Date of LMP: unknown Beta HcG (if available): Not available at this time IMPRESSION: Single live intrauterine with gestational age measuring 10 weeks and 5 days by sonographic criteria.
== END | disposition home or self-care (01) ==
LOC: RADUSWWP 12:57
PROVIDERS: ATTEND Obstetrics & Gynecology
DX: O26.851 Spotting complicating pregnancy, first trimester (principal); Z3A.10 10 weeks gestation of pregnancy
CPT/HCPCS: 76801

== ENCOUNTER 2021-04-06 12:22 | Outpatient (CLI) | payer OTHER ==
[2021-04-06 13:43] LABS: Basophils % (A) 0 %; Eosinophils # (A) 0.1 k/uL (0-0.7); Eosinophils % (A) 1 %; HCT 38.4 % (34.0-46.0); HGB 13.1 gm/dL (11.4-16.0); Lymphocytes % (A) 36 %; MCH 30.5 pg (25.0-35.0); MCHC 34.1 g/dL (31.0-37.0); MCV 89.4 fL (80.0-100.0); Mean Platelet Volume 7.3; Monocytes # (A) 0.2 k/uL (0-1.0); Monocytes % (A) 3 %; Neutrophils # (A) 3.2 k/uL (1.3-7.7); Neutrophils % (A) 58 %; Platelet Count 245 k/uL (150-450); RDW 13.9 % (11.5-15.5); WBC 5.5 k/uL (3.8-10.6)
[2021-04-06 13:59] LABS: ALT 10 U/L (4-34); AST 22 U/L (14-36); Amylase 69 U/L (30-110); GGT 12 U/L (12-43); Lipase 100 U/L (23-300)
--- NOTE | 2021-04-06 16:35 | US ---
EXAMINATION TYPE: US abdomen limited DATE OF EXAM: 04/06/2021 COMPARISON: 11/24/2018 CLINICAL HISTORY: 36-year-old female rule out cholelithiases. Epigastric pain, patient is 17 weeks pr egnant TECHNIQUE: Multiple sonographic images of the right upper quadrant are obtained. FINDINGS: EXAM MEASUREMENTS: Liver Length: 16.5 cm Gallbladder Wall: 0.3 cm CBD: 7.3 mm Right Kidney: 11.4 x 4.3 x 4.9 cm Pancreas: Tail obscured by overlying bowel gas. Visualized portions show no gross abnormality. Liver: Overall homogeneous appearance. Normal size. Gallbladder: Borderline fullness but no ruben hydropic change. No wall thickening, pericholecystic fl uid, or shadowing calculi. Evidence for sononoaphic Mdilated sign: no CBD: no evidence of hydronephrosis den of hydronephro IMPRESSION: 1. The bile duct is dilated at 7.3 mm. However, on 11/24/2018, the bile duct was also dilated measurin g 1.0 cm. This suggests that this may be chronic for the patient. Recommend correlating for normal al kaline phosphatase and bilirubin levels. A choledochocyst is a differential consideration. If laborat ory values are elevated, a recurrent biliary obstruction could be considered. 2. No gallstones or ancillary findings of acute cholecystitis.
[2021-04-06 17:11] LABS: Bilirubin, Delta 0.1 mg/dL (0.0-0.2); Bilirubin,Unconjugated 0.3 mg/dL (0.0-1.1); Total Bilirubin 0.4 mg/dL (0.2-1.3)
== END 2021-04-06 17:05 | disposition home or self-care (01) ==
LOC: FBPOP 12:22
PROVIDERS: ATTEND Obstetrics & Gynecology
DX: O26.612 Liver and biliary tract disorders in pregnancy, second trimester (principal); O99.332 Smoking (tobacco) complicating pregnancy, second trimester; F17.200 Nicotine dependence, unspecified, uncomplicated; Z3A.17 17 weeks gestation of pregnancy; Z91.011 Allergy to milk products
CPT/HCPCS: 76705; 82150; 82248; 82977; 83690; 84450; 84460; 85025

== ENCOUNTER → 2021-05-01 | Outpatient (CLI) | payer OTHER ==
[2021-05-01 20:09] LABS: T4, Free (Free Thyroxine) 1.1 ng/dL (0.80-1.80)
== END | disposition home or self-care (01) ==
LOC: LABWHC1 08:22
PROVIDERS: ATTEND Internal Medicine
DX: E89.0 Postprocedural hypothyroidism (principal)
CPT/HCPCS: 36415; 84439; 84443; 86376

== ENCOUNTER 2021-05-02 21:07 | Emergency (ER) | payer OTHER ==
[2021-05-02 21:25] VITALS: RESP 18; TEMP 98.6
[2021-05-02] MEDS ORDERED: AMPICILLIN-SULBACTAM 3 GM in SODIUM CHLORIDE 0.9% 100 ML IVPB STA (21:50)
--- NOTE | 2021-05-02 21:59 | ED ---
Animal Bite HPI - General Chief Complaint: Animal Bite Stated Complaint: cat bite Time Seen by Provider: 05/02/21 21:28 Source: patient Mode of arrival: ambulatory Limitations: no limitations - History of Present Illness MD Complaint: animal bite Onset/Timin -: days(s) Left: Hand Animal: cat Description: household pet Mechanism: bite Context: playing with animal Associated Symptoms: erythema Treatments Prior to Arrival: other - Related Data Patient Tetanus UTD: Yes Home Medications Medication Instructions Recorded Confirmed Methadone [Dolophine] 80 mg PO DAILY 07/04/20 05/02/21 Pnv No.95/Ferrous Fum/Folic AC 1 tab PO DAILY 04/06/21 05/02/21 [ Multivitamin Tablet] Amoxicillin/Potassium Clav 1 tab PO BID 05/02/21 05/02/21 [Augmentin 875-125 Tablet] Aspirin 81 mg PO DAILY 05/02/21 05/02/21 Levothyroxine Sodium [Synthroid] 50 mcg PO DAILY 05/02/21 05/02/21 Allergies Allergy/AdvReac Type Severity Reaction Status Date / Time lactose Allergy Intermediate Nausea & Verified 05/02/21 23:05 Vomiting & Diarrhea Review of Systems ROS Statement: Those systems with pertinent positive or pertinent negative responses have been documented in the HPI. ROS Other: All systems not noted in ROS Statement are negative. Constitutional: Denies: fever Respiratory: Denies: cough, dyspnea Cardiovascular: Denies: chest pain, palpitations Gastrointestinal: Denies: abdominal pain, vomiting Skin: Reports: as per HPI, lesions. Denies: rash Neurological: Denies: weakness, numbness, paresthesias Past Medical History Past Medical History: No Reported History Additional Past Medical History / Comment(s): ADD, narcotic addiction. History of Any Multi-Drug Resistant Organisms: None Reported Past Surgical History: Section Additional Past Surgical History / Comment(s): wisdom teeth, breast augmentation, hand surgery Past Anesthesia/Blood Transfusion Reactions: No Reported Reaction Past Psychological History: ADD/ADHD Smoking Status: Former smoker Past Alcohol Use History: None Reported Past Drug Use History: None Reported - Past Family History Mother Family Medical History: No Reported History Father Family Medical History: No Reported History General Exam Limitations: no limitations General appearance: alert, in no apparent distress Cardiovascular Exam: Present: other (Left radial and ulnar pulses are normal in strength. Normal capillary refill.) Left Shoulder Exam: Present: normal inspection, full ROM, other (No axillary nodes or lymphatic tracking). Absent: tenderness, swelling Upper Arm exam: Present: normal inspection, full ROM. Absent: tenderness, swelling Elbow exam: Present: normal inspection, full ROM. Absent: tenderness, swelling Forearm Wrist exam: Present: normal inspection, full ROM. Absent: tenderness, swelling Hand Wrist exam: Present: normal inspection, full ROM. Absent: tenderness, swelling Neuro motor exam: Present: wrist extension intact, thumb opposition intact, thumb IP flexion intact, thumb adduction intact, fingers 2-5 abduction intact Neurosensory exam: Present: radial nerve intact, ulnar nerve intact, median nerve intact Vascular: Present: normal capillary refill. Absent: vascular compromise, pulse deficit radial art, pulse deficit ulnar art, pulse deficit brachial art Neurological exam: Present: alert. Absent: motor sensory deficit (No sensory deficit throughout the left upper extremity) Skin exam: Present: warm, dry, intact, erythema, other (There is approximately 10 cm area of erythema, warmth, induration to dorsum of left hand, centered over bite. There is no purulent drainage. No apparent foreign body.). Absent: rash Course Vital Signs 05/02/21 21:20 Temperature 98.6 F Pulse Rate 83 Respiratory 18 Rate Blood Pressure 129/69 O2 Sat by Pulse 99 Oximetry Medical Decision Making - Lab Data Result diagrams: 05/02/21 22:09 05/02/21 22:09 Lab Results 05/02/21 05/02/21 Range/Units 22:09 22:09 WBC 7.1 (3.8-10.6) k/uL RBC 4.21 (3.80-5.40) m/uL Hgb 13.0 (11.4-16.0) gm/dL Hct 37.8 (34.0-46.0) % MCV 89.7 (80.0-100.0) fL MCH 30.8 (25.0-35.0) pg MCHC 34.3 (31.0-37.0) g/dL RDW 13.4 (11.5-15.5) % Plt Count 261 (150-450) k/uL MPV 7.2 Neutrophils % 56 % Lymphocytes % 37 % Monocytes % 4 % Eosinophils % 1 % Basophils % 1 % Neutrophils # 3.9 (1.3-7.7) k/uL Lymphocytes # 2.6 (1.0-4.8) k/uL Monocytes # 0.3 (0-1.0) k/uL Eosinophils # 0.1 (0-0.7) k/uL Basophils # 0.0 (0-0.2) k/uL Sodium 132 L (137-145) mmol/L Potassium (3.5-5.1) mmol/L Chloride 105 (98-107) mmol/L Carbon Dioxide 21 L (22-30) mmol/L Anion Gap 6 mmol/L BUN 13 (7-17) mg/dL Creatinine 1.13 H (0.52-1.04) mg/dL Est GFR (CKD-EPI)AfAm 71 (>60 ml/min/1.73 sqM) Est GFR (CKD-EPI)NonAf 62 (>60 ml/min/1.73 sqM) Glucose 92 (74-99) mg/dL Calcium 9.6 (8.4-10.2) mg/dL C-Reactive Protein 2.1 H (<1.0) mg/dL Disposition Clinical Impression: Cat bite Disposition: HOME SELF-CARE Instructions (If sedation given, give patient instructions): Animal Bite (ED) Is patient prescribed a controlled substance at d/c from ED?: No Referrals: Won Barillas MD [Primary Care Provider] - 1-2 days
--- NOTE | 2021-05-02 22:06 | XR ---
EXAMINATION TYPE: XR hand limited LT DATE OF EXAM: 05/02/2021 COMPARISON: NONE HISTORY: Pain and swelling TECHNIQUE: 2 views FINDINGS: There is soft tissue swelling on the dorsum of the hand. Metacarpals are intact. I see no f racture nor dislocation. IMPRESSION: Tissue swelling. No fracture. No evidence of arthritic disease.
[2021-05-02 22:48] LABS: C Reactive Protein 2.1 mg/dL (<1.0); Calcium 9.6 mg/dL (8.4-10.2)
[2021-05-02 22:56] LABS: Basophils % (A) 1 %; Eosinophils # (A) 0.1 k/uL (0-0.7); Eosinophils % (A) 1 %; HCT 37.8 % (34.0-46.0); Lymphocytes # (A) 2.6 k/uL (1.0-4.8); Lymphocytes % (A) 37 %; MCH 30.8 pg (25.0-35.0); MCHC 34.3 g/dL (31.0-37.0); MCV 89.7 fL (80.0-100.0); Mean Platelet Volume 7.2; Monocytes # (A) 0.3 k/uL (0-1.0); Monocytes % (A) 4 %; Neutrophils # (A) 3.9 k/uL (1.3-7.7); Neutrophils % (A) 56 %; Platelet Count 261 k/uL (150-450); RBC 4.21 m/uL (3.80-5.40); RDW 13.4 % (11.5-15.5); WBC 7.1 k/uL (3.8-10.6)
[2021-05-03 01:15] VITALS: BP 113/73; PULSE 81
== END 2021-05-03 01:15 | disposition home or self-care (01) ==
LOC: EC 21:07
DX: S61.452A Open bite of left hand, initial encounter (principal); Z87.891 Personal history of nicotine dependence; Z79.890 Hormone replacement therapy; Z79.899 Other long term (current) drug therapy; W55.01XA Bitten by cat, initial encounter
CPT/HCPCS: 36415; 80048; 85025; 86140; 73120; 96365; 96366; 99283; J0295

== ENCOUNTER → 2021-06-15 | Outpatient (CLI) | payer OTHER ==
[2021-06-15 18:04] LABS: T4, Free (Free Thyroxine) 1.11 ng/dL (0.800-1.800)
== END | disposition home or self-care (01) ==
LOC: LABWHC1 08:41
PROVIDERS: ATTEND Internal Medicine
DX: E03.9 Hypothyroidism, unspecified (principal)
CPT/HCPCS: 36415; 84439; 84443

== ENCOUNTER 2021-08-21 18:06 | Emergency (ER) | payer OTHER ==
[2021-08-21 20:47] VITALS: RESP 18; TEMP 98.8
--- NOTE | 2021-08-21 22:45 | ED ---
URI HPI - General Chief Complaint: Upper Respiratory Infection Stated Complaint: 37 wks; Covid +; needs BAM Time Seen by Provider: 08/21/21 22:18 Source: patient, RN notes reviewed Mode of arrival: ambulatory Limitations: no limitations - History of Present Illness Initial Comments: This is a pleasant 36-year-old female presents to emergency department after developing symptoms consistent with COVID-19 yesterday. She is describing mild cough, body aches, stuffy nose which developed yesterday. She was exposed to her who tested positive for COVID-19. Patient is 37 weeks . Patient denies any abdominal pain. No vaginal bleeding or vaginal leakage. Patient states that the baby is moving fine. She denies any other symptomology. Patient's OB physician is down near the [facility]. no changes in vision or hearing, no sore throat or difficulty with speech, no neck pain, no chest pain or shortness of breath, no abdominal pain, no nausea or vomiting, no changes in urination or bowel movements, no numbness or tingling, no extremity pain, no skin rashes or lesions. - Related Data Home Medications Medication Instructions Recorded Confirmed Pnv No.95/Ferrous Fum/Folic AC 1 tab PO DAILY 04/06/21 08/21/21 [ Multivitamin Tablet] Acetaminophen Tab [Tylenol Tab] 500 mg PO Q6H PRN 08/21/21 08/21/21 Levothyroxine Sodium [Synthroid] 100 mcg PO DAILY 08/21/21 08/21/21 Methadone HCl [Methadone Intensol] 80 mg PO DAILY 08/21/21 08/21/21 Allergies Allergy/AdvReac Type Severity Reaction Status Date / Time lactose Allergy Intermediate Nausea & Verified 08/21/21 23:23 Vomiting & Diarrhea Review of Systems ROS Statement: Those systems with pertinent positive or pertinent negative responses have been documented in the HPI. ROS Other: All systems not noted in ROS Statement are negative. Past Medical History Past Medical History: No Reported History Additional Past Medical History / Comment(s): ADD, narcotic addiction. History of Any Multi-Drug Resistant Organisms: None Reported Past Surgical History: Section Additional Past Surgical History / Comment(s): wisdom teeth, breast augmentation, hand surgery Past Anesthesia/Blood Transfusion Reactions: No Reported Reaction Past Psychological History: ADD/ADHD Smoking Status: Former smoker Past Alcohol Use History: None Reported Past Drug Use History: None Reported - Past Family History Mother Family Medical History: No Reported History Father Family Medical History: No Reported History General Exam - General Exam Comments Initial Comments: Patient does not appear to be ill or toxic. No distress. Adequate peripheral perfusion. Limitations: no limitations General appearance: alert, in no apparent distress Head exam: Present: atraumatic, normocephalic, normal inspection Eye exam: Present: normal appearance, PERRL, EOMI. Absent: scleral icterus, conjunctival injection, periorbital swelling ENT exam: Present: normal exam, mucous membranes moist Neck exam: Present: normal inspection, full ROM. Absent: tenderness, meningismus, lymphadenopathy Respiratory exam: Present: normal lung sounds bilaterally. Absent: respiratory distress, wheezes, rales, rhonchi, stridor Cardiovascular Exam: Present: regular rate, normal rhythm, normal heart sounds. Absent: systolic murmur, diastolic murmur, rubs, gallop, clicks GI/Abdominal exam: Present: soft, normal bowel sounds. Absent: distended, tenderness, guarding, rebound, rigid Extremities exam: Present: normal inspection, full ROM, normal capillary refill. Absent: tenderness, pedal edema, joint swelling, calf tenderness Back exam: Present: normal inspection Neurological exam: Present: alert, oriented X3, CN II-XII intact Psychiatric exam: Present: normal affect, normal mood Skin exam: Present: warm, dry, intact, normal color. Absent: rash Course Vital Signs 08/21/21 20:44 Temperature 98.8 F Pulse Rate 94 Respiratory 18 Rate Blood Pressure 125/71 O2 Sat by Pulse 97 Oximetry Medical Decision Making - Medical Decision Making Patient is 37 weeks . Vital signs stable, patient afebrile. Patient positive for COVID-19. Very mild COVID-19 symptoms which started yesterday. Patient was told to return to the ER for any signs or symptoms worsen. Told to return immediately if any other problems arise. All questions answered. Treatment plan discussed. Patient in agreement Patient told to contact her SEARCH OPTIMIZATION ANALYST physician in the morning without fail. Patient on need to be monitored closely. heart tones were auscultated. heart rate in the 130s per museum exhibit designer. - Lab Data Lab Results 08/21/21 Range/Units 20:49 Coronavirus (PCR) Detected A (Not Detectd) Disposition Clinical Impression: COVID-19, Current determined by history Disposition: HOME SELF-CARE Condition: Good Additional Instructions: SELF QUARANTINE DISCHARGE: As you are at risk for symptoms due to coronavirus, please stay home and stay away from others as much as possible. Please maintain social distance of 6 feet if possible. You should not return to work until at least 3 days (72 hours) have passed since recovery of symptoms. This defined as resolution of fever without the use of fever reducing medicines and improvement in respiratory symptoms (e.g,, cough, shortness of breath) and, At least 5 days have passed since symptoms first appeared. More information about what to do if you are sick can be found on the CDC website at https://www.cdc.gov/coronavirus/2019-ncov/if-you- are-sick/inqzc-podm-tnwp.html Expect the symptoms to last for 7-14 days from onset. Use acetaminophen (Tylenol) as needed for discomfort. You can take a maximum of 1 gram every 6 hours for discomfort, with your total dose in 24 hours not exceeding 4 grams. Be sure to maintain hydration. Drink continuous water and/or items high in vitamin C, such as orange juice and/or lemonade. Unless you have high blood pressure, you may consider Sudafed (which is [id number]) for nasal congestion. I would suggest that a short acting Sudafed rather than the 24 hour Sudafed. Use a humidifier that is cleaned frequently, in the bedroom at night. For Nausea /Vomiting/Diarrhea associated with your Illness: o Small frequent sips of room temperature liquids. o Diet: [place] [employer] - If you are still experiencing discomfort and/or nausea please slowly advancing your diet using the BRAT Diet = bananas, rice, apples/apple sauce, toast. o With diarrhea avoid any dairy for 48 hours after symptoms resolved. o Continue with activity as tolerated. If your symptoms do get worse and you believe that the upper respiratory infection has developed into something else, such as pneumonia or severe dehydration, please return to the emergency department or follow-up with your primary care. But expect to be symptomatic for the days as indicated above Contact your SEARCH OPTIMIZATION ANALYST physician and your regular physician by phone in the morning. Is patient prescribed a controlled substance at d/c from ED?: No Referrals: Won Barillas MD [Primary Care Provider] - 1-2 days Time of Disposition: 23:21
[2021-08-21] MEDS ORDERED: BAMLANIVIMAB (EUA) 700 MG, ETESEVIMAB (EUA) 1,400 MG in SODIUM CHLORIDE 0.9% 100 ML IVPB ONE (23:15)
[2021-08-21] MEDS ORDERED: SODIUM CHLORIDE 0.9% 50 ML IVPB ONE (23:15)
[2021-08-22 01:34] VITALS: BP 122/69; PULSE 87
== END 2021-08-22 01:15 | disposition home or self-care (01) ==
LOC: EC 18:06
DX: O98.513 Other viral diseases complicating pregnancy, third trimester (principal); U07.1 COVID-19; F90.9 Attention-deficit hyperactivity disorder, unspecified type; Z87.891 Personal history of nicotine dependence; Z3A.37 37 weeks gestation of pregnancy
CPT/HCPCS: 99283; M0245; 87635

== ENCOUNTER → 2022-11-15 | Outpatient (CLI) | payer BC, OTHER ==
--- NOTE | 2022-11-15 07:41 | MR ---
EXAMINATION TYPE: MR hip RT wo con DATE OF EXAM: 11/15/2022 COMPARISON: None. HISTORY: Right hip pain x 2 months. Standard multiplanar, multisequence MRI departmental protocol Multiplanar, multisequence images of the pelvis focusing on right hip were acquired without contrast. FINDINGS: There is linear diminished T1 signal just above the lesser trochanter at the intertrochante viet region of the right proximal femur measuring 13 mm coronal image 12. There is surrounding T2 hype rintensity at this level. Findings are consistent with acute nondisplaced stress type fracture and panda rrounding osseous edema. Findings presumed to account for patient's symptoms. There are tiny symmetric hip joint effusions presumed physiologic. There are subcentimeter bilateral groin lymph nodes. No groin hernia or adenopathy. Muscle bulk is maintained bilaterally. Hip joint sp aces are preserved. No significant spurring or subchondral cystic change. Labrum grossly intact given the limitation of the MR arthrogram study and some patient motion. There is susceptibility artifact at the right base of uterus axial image 22 of uncertain etiology. An teverted uterus is present. No suspicious bowel dilatation. No pelvic fluid collection. Urinary bladd er is within normal limits. IMPRESSION: There is acute stress type fracture intertrochanteric level medially just above the lesse r trochanter with surrounding abnormal osseous edema.
== END | disposition home or self-care (01) ==
LOC: RADMRIMAIN 06:05
PROVIDERS: ATTEND Orthopaedic Surgery
DX: S72.121A Displaced fracture of lesser trochanter of right femur, initial encounter for closed fracture (principal); S72.091A Other fracture of head and neck of right femur, initial encounter for closed fracture; S70.01XA Contusion of right hip, initial encounter

== ENCOUNTER → 2022-12-10 | Outpatient (CLI) | payer BC, OTHER | END | disposition home or self-care (01) | LOC: LABWHC1 07:48 | PROVIDERS: ATTEND Orthopaedic Surgery | DX: S72.144D Nondisplaced intertrochanteric fracture of right femur, subsequent encounter for closed fracture with routine healing (principal); M25.551 Pain in right hip; X58.XXXA Exposure to other specified factors, initial encounter | CPT/HCPCS: 36415; 82306 ==

== ENCOUNTER 2022-12-18 14:25 | Inpatient (IN) | payer BC, OTHER ==
[2022-12-16 12:48] VITALS: BMI 36.0
[~2022-12-18 14:25] MED LIST: DEXAMETHASONE SOD PHOSPHATE 4 MG/ML 1 ML VIAL IV ONE; MIDAZOLAM 2 MG/2 ML VIAL IV PRN; ONDANSETRON 4 MG/2 ML VIAL IVP ONE
[2022-12-18] MEDS: LACTATED RINGERS 1,000 ML IV SCH ×2 (14:44→19:14)
[2022-12-18] MEDS ORDERED: KETAMINE 10 MG/ML 20 ML VIAL ONE (16:19)
[2022-12-18] MEDS ORDERED: LIDOCAINE 2% INJ 20 MG/ML (2 ML VIAL) ONE (16:19)
[2022-12-18] MEDS ORDERED: MIDAZOLAM 2 MG/2 ML VIAL ONE (16:19)
[2022-12-18] MEDS ORDERED: SUCCINYLCHOLINE CHLORIDE 200 MG/10 ML VIAL IV ONE (16:19)
[2022-12-18] MEDS ORDERED: PROPOFOL 10 MG/ML 20 ML VIAL IV ONE (16:19)
[2022-12-18] MEDS ORDERED: fentaNYL (PF) 50 MCG/ML 2 ML AMP ONE (16:19)
[2022-12-18] MEDS ORDERED: BUPIVACAINE (PF) 0.5% 30 ML VIAL SQ ONE (17:32)
[2022-12-18] MEDS ORDERED: NALOXONE 0.4 MG/ML 1 ML VIAL IV PRN (17:50)
[2022-12-18] MEDS ORDERED: HYDROmorphone 0.5 MG/0.5 ML SYRINGE IVP PRN ×2 (17:50)
[2022-12-18] MEDS ORDERED: ONDANSETRON 4 MG/2 ML VIAL IVP PRN (17:50)
[2022-12-18] MEDS ORDERED: hydrOXYzine pamoate 25 MG CAP PO PRN (17:50)
[2022-12-18] MEDS ORDERED: HYDROcodone/APAP 5-325MG 1 EACH TAB PO PRN (17:50)
--- NOTE | 2022-12-18 18:01 | P.OP ---
Date of Procedure: 12/18/22 Preoperative Diagnosis: Right basicervical compression sided femoral neck fracture Postoperative Diagnosis: Same Procedure(s) Performed: In situ screw fixation right femoral neck Anesthesia: ALEX Surgeon: Neeraj Blanco Agricultural Extension Specialist #1: Angela Solorzano Estimated Blood Loss (ml): 50 IV fluids (ml): 600 Pathology: none sent Condition: stable Disposition: PACU Indications for Procedure: The patient is a very pleasant previously healthy 37-year-old female who I been seeing for the last 6 weeks for right hip pain. She initially presented with severe pain and difficulty ambulating. Her x-rays were normal so she was sent for an MRI which showed a minimally displaced basicervical impression sided femoral neck fracture with significant bony edema. Since the fracture traversed less than 50% of the neck we initially tried nonsurgical treatment. I recommended strict nonweightbearing with crutches. The patient had a difficult time complying with nonweightbearing due to having kids. She presented to 1 follow up appointment walking without crutches. Her x-rays continued to show no displacement. I met with the patient last week at which time she had continued pain in her hip and groin and difficulty staying off the hip. We discussed continued nonsurgical treatment with strict nonweightbearing versus prophylactic stabilization. The patient elected to proceed with prophylactic stabilization. She understands the importance of continued protected weightbearing. I recommendation was to use cannulated screws rather than a short intramedullary hip screw and violating the abductors or a dynamic hip screw which would require a more extensive surgical dissection. I long discussion with the patient on the potential risks and complications of surgery including but certainly not limited to risks from anesthesia, superficial infection, deep infection, nonunion, malunion, fracture, hardware failure, avascular necrosis of the femoral head, hip arthritis, pain, and inability to regain preinjury level of function, need for further surgery including revision fracture fixation or possibly arthroplasty, DVT, PE, other medical complications, and possibly loss of life or limb. The patient voiced understanding of these potential Locations also analogy other less common complications. She provided both her verbal and written consent to go forward with surgery. Description of Procedure: The patient was then verified in preoperative holding and the correct right hip was marked with my initials. I reviewed the consent form with the patient and her [id number]. All their questions were answered. The patient was then brought back to the operating room by anesthesia. She was positioned on the gurney and a general anesthetic and preoperative antibiotics were given. Boots for the [place] table were applied. The patient was then carefully transferred onto the [place] table and the boots were engaged to the spars. The peroneal post was placed. The right arm was carefully draped a crossed the chest to facilitate imaging. Nonsterile drapes were applied. The left leg was dropped to the floor to facilitate lateral fluoroscopic imaging. The right leg was internally rotated 10. Fluoroscopy was then brought in to verify an AP and lateral of the hip could be obtained. The right leg was then prepped and draped in the standard sterile fashion. Prior to starting surgery timeout was performed identifying the correct patient, operative extremity, and procedure. I began by making a 3 cm incision directly over the lateral aspect of the proximal femur. Skin incision was made with a scalpel and dissection was carried down through subcutaneous tissue. The IT band was incised longitudinally in line with the skin incision. Muscle fibers were carefully elevated off the lateral femur. A guidepin for a cannulated 6.5 monitor screw was then placed just above the lesser trochanter and positioned through the inferior neck into the femoral head. The position of the guidepin was checked with orthogonal views using fluoroscopy. I then placed an additional 2 guidepins proximally into the femoral head again checking on orthogonal views. All guidepins were measured, drilled, and cannulated 6.5 mm partial threaded screws were placed all generating excellent compression. A final AP and lateral fluoroscopic image showed position of the screws completely within the femoral head. The wound was thoroughly irrigated and closed in layers. A sterile dressing was applied. Local anesthetic was infiltrated around the surgical field. I verified that all instrument, sponge, and sharp counts were correct. The patient was then awoken from her anesthetic, transferred from the OR table to the ryork, and brought to recovery having touted procedure well. Angela Solorzano PA-C was required as a skilled language assistant for patient positioning, retraction, placement of hardware, and closure of wound. PLAN: The patient is going to be admitted overnight for pain control and IV anti biotics. She is to be toe-touch weightbearing on her right leg with crutches. Given preoperative risk stratification she'll be treated with aspirin 81 mg twice a day for 6 weeks. We'll plan on discharge home tomorrow and she passes therapy and her pain is controlled.
[2022-12-18] MEDS: HYDROmorphone 0.5 MG/0.5 ML SYRINGE IVP PRN ×4 (18:04→18:25)
[2022-12-18] MEDS ORDERED: HYDROmorphone 0.5 MG/0.5 ML SYRINGE IVP ONE (18:31)
[2022-12-18] MEDS ORDERED: fentaNYL (PF) 50 MCG/1 ML VIAL IV ONE (18:40)
--- NOTE | 2022-12-18 18:40 | FL ---
Intraoperative/procedural fluoroscopic services were provided. Total fluoroscopy time is 1 minute 44 seconds with a total of 2 submitted images to PACS. Please see the operative/procedural note for furt her details. DAP: 02.001
[2022-12-18 20:29] LABS: Basophils % (A) 0 %; Eosinophils % (A) 1 %; HGB 13.8 gm/dL (11.4-16.0); Lymphocytes # (A) 0.8 k/uL (1.0-4.8); Lymphocytes % (A) 14 %; MCH 27.7 pg (25.0-35.0); MCV 86.7 fL (80.0-100.0); Mean Platelet Volume 6.8; Monocytes # (A) 0.1 k/uL (0-1.0); Monocytes % (A) 2 %; Neutrophils % (A) 83 %; Platelet Count 282 k/uL (150-450); RBC 4.96 m/uL (3.80-5.40); RDW 12.9 % (11.5-15.5)
[2022-12-18] MEDS ORDERED: SENNOSIDES-DOCUSATE SODIUM 1 EACH TAB PO SCH (21:00)
[2022-12-18] MEDS: ASPIRIN 81 MG PO SCH (21:44)
[2022-12-18] MEDS: HYDROmorphone 1 MG/ML 1 ML SYRINGE IVP PRN (21:52)
[2022-12-18] MEDS: HYDROcodone/APAP 5-325MG 1 EACH TAB PO PRN (23:15)
[2022-12-19 01:59] VITALS: RESP 17
[2022-12-19] MEDS: HYDROmorphone 1 MG/ML 1 ML SYRINGE IVP PRN ×2 (03:06→09:06)
[2022-12-19] MEDS: LACTATED RINGERS 1,000 ML IV SCH ×3 (03:07→11:41)
[2022-12-19] MEDS: HYDROcodone/APAP 5-325MG 1 EACH TAB PO PRN (06:04)
[2022-12-19 08:49] VITALS: BP 135/78; PULSE 96; TEMP 98.4
[2022-12-19] MEDS: ASPIRIN 81 MG PO SCH (09:03)
--- NOTE | 2022-12-19 14:02 | P.DS ---
Providers Date of admission: 12/18/22 14:25 Expected date of discharge: 12/19/22 Attending physician: Neeraj Blanco Primary care physician: Won Barillas [facility] Course: This patient is a 37- year old female who sustained a right femoral neck stress fracture. Options were discussed, and patient elected to proceed with in situ screw fixation right femoral neck on 12/18/22. The procedure is performed without complication or sequela. Labs and vital signs are stable on post-operative day #1. Patient is examined bedside this morning. She states the pain in her right hip is well controlled at this time. Per nursing, she has passed physical therapy to return home. Patient has no complaints or concerns day of discharge. On examination, patient it sitting up in bed in no apparent distress. She is alert and orientated x3. On inspection of her right hip, there is a clean, dry, intact Opsite dressing in place. Mild swelling of the thigh, thigh is soft and compressible. Motor and sensory function is intact of the right lower extremity. Right lower extremity is warm and well perfused. Patient is discharged home today in good condition. She should follow-up in the office in two weeks at [facility]. Please see med rec for accurate list of discharge medications. Plan - Discharge Summary Discharge Rx Participant: Yes New Discharge Prescriptions: New Aspirin 81 mg PO BID 30 Days #60 tab HYDROcodone/APAP 5-325MG [[place] 5-325] 1 tab PO Q6HR PRN 7 Days #28 tab PRN Reason: Pain Docusate [Colace] 100 mg PO BID #60 capsule No Action Acetaminophen Tab [Tylenol Tab] 500 mg PO Q6H PRN PRN Reason: Pain Or Fever > 100.5 Methadone HCl [Methadone Intensol] 80 mg PO DAILY FLUoxetine HCL [PROzac] 40 mg PO DAILY Discharge Medication List Acetaminophen Tab [Tylenol Tab] 500 mg PO Q6H PRN 08/21/21 [History] Methadone HCl [Methadone Intensol] 80 mg PO DAILY 08/21/21 [History] FLUoxetine HCL [PROzac] 40 mg PO DAILY 12/18/22 [History] Aspirin 81 mg PO BID 30 Days #60 tab 12/19/22 [Rx] Docusate [Colace] 100 mg PO BID #60 capsule 12/19/22 [Rx] HYDROcodone/APAP 5-325MG [[place] 5-325] 1 tab PO Q6HR PRN 7 Days #28 tab 12/19/22 [Rx] Follow up Appointment(s)/Referral(s): Neeraj Blanco MD [Medical Doctor] - 12/30/22 8:15 am Activity/Diet/Wound Care/Special Instructions: Toe-touch weight bearing operative extremity with a walker. Keep operative dressing in place until follow-up in the office. May shower over dressing. Take pain medications as needed. Take aspirin 81mg twice a day x 4 weeks for blood clot prevention. Take Colace while taking [place]. Follow-up in the office in two weeks at [facility]. Call the office with any questions or concerns, Discharge Disposition: HOME WITH HOME HEALTH SERVICES
== END 2022-12-19 14:12 | disposition home health service (06) | DRG 482 ==
LOC: 2ORMAIN 14:25 → EDSTATUS 16:15 → 4SSUR 18:07
PROVIDERS: ADMIT Orthopaedic Surgery; ATTEND Orthopaedic Surgery
PROC: 0QS634Z Reposition Right Upper Femur with Internal Fixation Device, Percutaneous Approach (ICD-10-PCS; principal; 2022-12-18 16:15)
DX: S72.091A Other fracture of head and neck of right femur, initial encounter for closed fracture (principal); M84.351A Stress fracture, right femur, initial encounter for fracture; Z91.011 Allergy to milk products; Z87.891 Personal history of nicotine dependence
CPT/HCPCS: 73501; 85025

== ENCOUNTER 2023-06-02 23:37 | Emergency (ER) | payer BC, OTHER ==
[2023-06-02 23:50] VITALS: BP 142/83; PULSE 122; RESP 16; TEMP 98.9
[2023-06-03] MEDS ORDERED: KETOROLAC 15 MG/ML 1 ML VIAL IM STA (00:04)
--- NOTE | 2023-06-03 00:31 | ED ---
Upper Extremity HPI - General Chief Complaint: Extremity Injury, Upper Stated Complaint: Broke fingernail Time Seen by Provider: 06/02/23 23:42 Source: patient Mode of arrival: ambulatory Limitations: no limitations - History of Present Illness Initial Comments: 2-year-old female presenting with chief complaint of nail injury to the right fourth digit. Patient states that she stubbed her finger which caused her acrylic nail to lift up off of the nail bed. Patient is now having tenderness over the nailbed. Patient has full range of motion of the remainder of the finger with no swelling or deformity. - Related Data Home Medications Medication Instructions Recorded Confirmed Acetaminophen Tab [Tylenol Tab] 500 mg PO Q6H PRN 08/21/21 08/21/21 Methadone HCl [Methadone Intensol] 80 mg PO DAILY 08/21/21 12/18/22 FLUoxetine HCL [PROzac] 40 mg PO DAILY 12/18/22 12/18/22 Previous Rx's Medication Instructions Recorded Aspirin 81 mg PO BID 30 Days #60 tab 12/19/22 Docusate [Colace] 100 mg PO BID #60 capsule 12/19/22 HYDROcodone/APAP 5-325MG [[place] 1 tab PO Q6HR PRN 7 Days #28 tab 12/19/22 5-325] Allergies Allergy/AdvReac Type Severity Reaction Status Date / Time lactose Allergy Intermediate Nausea & Verified 12/18/22 15:19 Vomiting & Diarrhea Review of Systems ROS Statement: Those systems with pertinent positive or pertinent negative responses have been documented in the HPI. ROS Other: All systems not noted in ROS Statement are negative. Past Medical History Past Medical History: No Reported History Additional Past Medical History / Comment(s): narcotic addiction. RT HIP STRESS FX, MIGRAINES History of Any Multi-Drug Resistant Organisms: None Reported Past Surgical History: Breast Surgery, Section Additional Past Surgical History / Comment(s): wisdom teeth, breast augmentation, RT hand surgery Past Anesthesia/Blood Transfusion Reactions: No Reported Reaction Past Psychological History: ADD/ADHD, Depression Smoking Status: Former smoker Past Alcohol Use History: None Reported Past Drug Use History: None Reported - Past Family History Mother Family Medical History: Cancer Additional Family Medical History / Comment(s): CURRENTLY IN HOSPICE FOR LUNG CANCER WITH METS Father Family Medical History: No Reported History General Exam Limitations: no limitations General appearance: alert, in no apparent distress Head exam: Present: atraumatic, normocephalic, normal inspection Eye exam: Present: normal appearance, EOMI Neck exam: Present: normal inspection, full ROM Respiratory exam: Absent: respiratory distress Neurological exam: Present: alert, oriented X3 Psychiatric exam: Present: normal affect, normal mood Skin exam: Present: other (Patient has a cracked nail to the right fourth digit. Her acrylic nail has lifted from the surface causing a split down the nail.) Course Vital Signs 06/02/23 23:37 Temperature 98.9 F Pulse Rate 122 H Respiratory 16 Rate Blood Pressure 142/83 O2 Sat by Pulse 98 Oximetry Medical Decision Making - Medical Decision Making Was pt. sent in by a medical professional or institution ([facility], CCNA, urgent care, hospital, or [place] health care facility...) When possible be specific @ -No Did you speak to anyone other than the patient for history (EMS, parent, family, police, friend...)? What history was obtained from this source @ -No Did you review nursing and triage notes (agree or disagree)? Why? @ -I reviewed and agree with nursing and triage notes Were old charts reviewed (outside hosp., previous admission, EMS record, old EKG, old radiological studies, urgent care reports/EKG's, [place] health care facility records)? Report findings @ -No old charts were reviewed Differential Diagnosis (chest pain, altered mental status, abdominal pain women, abdominal pain men, vaginal bleeding, weakness, fever, dyspnea, syncope, headache, dizziness, GI bleed, back pain, seizure, CVA, palpatations, mental health, musculoskeletal)? @ -not applicable EKG interpreted by me (3pts min.). @ -As above X-rays interpreted by me (1pt min.). @ -None done CT interpreted by me (1pt min.). @ -None done U/S interpreted by me (1pt. min.). @ -None done What testing was considered but not performed or refused? (CT, X-rays, U/S, labs)? Why? @ -None What meds were considered but not given or refused? Why? @ -None Did you discuss the management of the patient with other professionals (professionals i.e. [facility], CCNA, lab, RT, psych nurse, addiction social worker, feed mill supervisor, teacher, aerospace engineer officer armament, case specialist)? Give summary @ -No Was smoking cessation discussed for >3mins.? @ -No Was critical care preformed (if so, how long)? @ -No Were there social determinants of health that impacted care today? How? (Homelessness, low income, unemployed, alcoholism, drug addiction, transportation, low edu. Level, literacy, decrease access to med. care, half-way, rehab)? @ -No Was there de-escalation of care discussed even if they declined (Discuss DNR or withdrawal of care, Hospice)? DNR status @ -No What co-morbidities impacted this encounter? (DM, HTN, Smoking, COPD, CAD, Cancer, CVA, ARF, Chemo, Hep., AIDS, mental health diagnosis, sleep apnea, morbid obesity)? @ -None Was patient admitted / discharged? Hospital course, mention meds given and route, prescriptions, significant lab abnormalities, going to OR and other pertinent info. @ -38-year-old female presenting with chief complaint of injury to the right fourth fingernail. Her acrylic nail is lifted up from the surface and has caused a crack in the nail bed. Bulky dressing is applied and patient is educated on wound care.Follow-up with PCP. Report back to ER with any new or worsening symptoms. Discussed return parameters and answered all questions. Patient conveyed verbal understanding and agreed to the plan. I discussed this case in detail with my attending Dr. Perla Undiagnosed new problem with uncertain prognosis? @ -No Drug Therapy requiring intensive monitoring for toxicity (Heparin, Nitro, Insulin, Cardizem)? @ -No Were any procedures done? @ -No Diagnosis/symptom? @ -Nail avulsion Acute, or Chronic, or Acute on Chronic? @ -Acute Uncomplicated (without systemic symptoms) or Complicated (systemic symptoms)? @ -Uncomplicated Side effects of treatment? @ -No Exacerbation, Progression, or Severe Exacerbation? @ -No Poses a threat to life or bodily function? How? (Chest pain, [place], NH, pneumonia, PE, COPD, DKA, ARF, appy, cholecystitis, CVA, Diverticulitis, Homicidal, Suicidal, threat to staff... and all critical care pts) @ -No Disposition Clinical Impression: Nail avulsion Disposition: HOME SELF-CARE Condition: Good Instructions (If sedation given, give patient instructions): Nail Avulsion (ED) Additional Instructions: Follow-up with PCP. Report back to ER with any new or worsening symptoms. Is patient prescribed a controlled substance at d/c from ED?: No Referrals: Jose Pabon MD [Primary Care Provider] - 1-2 days Time of Disposition: 00:30
== END 2023-06-03 00:59 | disposition home or self-care (01) ==
LOC: EC 23:37
DX: S61.304A Unspecified open wound of right ring finger with damage to nail, initial encounter (principal); F32.A Depression, unspecified; F90.9 Attention-deficit hyperactivity disorder, unspecified type; Z87.891 Personal history of nicotine dependence; W23.0XXA Caught, crushed, jammed, or pinched between moving objects, initial encounter
CPT/HCPCS: 99283; 96372; J1885